=== PATIENT | male | born 1985 ===

== ENCOUNTER 2016-09-22 00:39 | Emergency (ER) | payer SELFPAY ==
[2016-09-22 00:56] VITALS: BP 124/76; PULSE 74; RESP 18; TEMP 98.5; O2SAT 100
--- NOTE | 2016-09-22 01:19 | ED PDOC ---
HPI: Abdomen Time Seen by Provider: 09/22/16 00:53 Chief Complaint (Nursing): GI Problem Chief Complaint (Provider): abd/chest pain History Per: Patient History/Exam Limitations: no limitations Onset/Duration Of Symptoms: Days (1 week), Waxing/Waning Location Of Pain/Discomfort: Epigastric Quality Of Discomfort: Burning, Pressure Associated Symptoms: denies: Fever, Chills, Nausea, Vomiting, Back Pain, Chest Pain, Urinary Symptoms Additional History Per: Patient Additional Complaint(s): 31 y/o male presents for eval of intermittent abdomen/chest pain x 1 week, worse tonight. Patient notes "acid" feeling in upper abdomen, which radiates up in to his chest and causes pressure on his chest. Patient states symptoms usually exacerbated by eating, improved with Tums. Patient notes tonight after eating eggs and rice to have burning sensation in upper abdomen which traveled up in to his chest; he states the feeling made him nervous and he began to experience palpitations and shortness of breath. Patient states he took 3 tums with improvement of symptoms. Denies fever, nausea/vomiting, changes in bowel movements, recent travel, leg pain/swelling. Past Medical History Reviewed: Historical Data, Nursing Documentation, Vital Signs Vital Signs: Last Vital Signs Temp 98.5 F 09/22/16 00:52 Pulse 74 09/22/16 00:52 Resp 18 09/22/16 00:52 BP 124/76 09/22/16 00:52 Pulse Ox 100 09/22/16 02:28 - Medical History PMH: No Chronic Diseases - Surgical History Surgical History: No Surg Hx - Family History Family History: States: Unknown Family Hx - Living Arrangements Living Arrangements: With Family - Social History Current smoker - smoking cessation education provided: No Alcohol: Occasional Drugs: Denies - Home Medications Home Medications: Ambulatory Orders Medication Instructions Recorded Famotidine [Pepcid] 20 mg PO BID #30 tab 09/22/16 - Allergies Allergies/Adverse Reactions: Allergies Allergy/AdvReac Type Severity Reaction Status Date / Time No Known Allergies Allergy Verified 09/22/16 00:52 Review of Systems ROS Statement: Except As Marked, All Systems Reviewed And Found Negative Cardiovascular: Positive for: Chest Pain Gastrointestinal: Positive for: Abdominal Pain Physical Exam - Reviewed Nursing Documentation Reviewed: Yes Vital Signs Reviewed: Yes - Physical Exam Appears: Positive for: Well, Non-toxic, No Acute Distress Head Exam: Positive for: ATRAUMATIC, NORMAL INSPECTION, NORMOCEPHALIC Skin: Positive for: Normal Color Eye Exam: Positive for: Normal appearance ENT: Positive for: Normal ENT Inspection Cardiovascular/Chest: Positive for: Regular Rate, Rhythm Respiratory: Positive for: Normal Breath Sounds Gastrointestinal/Abdominal: Positive for: Normal Exam Back: Positive for: Normal Inspection Extremity: Positive for: Normal ROM Neurologic/Psych: Positive for: Alert, Oriented - Laboratory Results Result Diagrams: 09/22/16 01:36 09/22/16 01:36 - ECG ECG: Positive for: Viewed By Me (reviewed by ED attending) ECG Rhythm: Positive for: Sinus Rhythm O2 Sat by Pulse Oximetry: 100 Pulse Ox Interpretation: Normal - Radiology X-Ray: Viewed By Me X-Ray Interpretation: No Acute Disease - Progress ED Course And Treament: labs, ekg, chest xray, IV pepcid On re-eval, patient resting comfortably; states pain improved. Patient educated on findings, discharged with rx pepcid. Advised follow up PMD. Return to ED for worsening/concerning symptoms. Disposition - Clinical Impression Clinical Impression: Abdominal pain, Chest pain - Patient ED Disposition Is Patient to be Admitted: No Counseled Patient/Family Regarding: Studies Performed, Diagnosis, Need For Followup, Rx Given - Disposition Referrals: [facility] [Outside] Disposition: Routine/Home Disposition Time: 04:41 Condition: IMPROVED Prescriptions: Famotidine [Pepcid] 20 mg PO BID #30 tab Instructions: Abdominal Pain (ED), Noncardiac Chest Pain (ED)
[2016-09-22 01:40] LABS: BASO # 0.1 K/uL (0.0-0.2); BASO % 0.8 % (0.0-2.0); EOS # 0.1 K/uL (0.0-0.7); EOS % 1.7 % (0.0-4.0); HEMATOCRIT 43.4 % (35.0-51.0); LYMPH # 1.3 K/uL (1.0-4.3); LYMPH % 20.7 % (20.0-40.0); MEAN CELL VOLUME 88.9 fl (80.0-94.0); MEAN CORPUSCULAR HEMOGLOBIN 29.6 pg (27.0-31.0); MEAN CORPUSCULAR HGB CONC 33.3 g/dL (33.0-37.0); MONO # 0.6 K/uL (0.0-0.8); NEUT # 4.3 K/uL (1.8-7.0); NEUT % 67.8 % (50.0-75.0); RED CELL DISTRIBUTION WIDTH 12.5 % (11.5-14.5); WHITE BLOOD COUNT 6.4 K/uL (4.8-10.8)
[2016-09-22 01:46] LABS: ALKALINE PHOSPHATASE 80 U/L (38-126); ALT/SGPT 38 U/L (21-72); AST/SGOT 29 U/L (17-59); BILIRUBIN,TOTAL 0.4 mg/dl (0.2-1.3); BLOOD UREA NITROGEN 14 mg/dl (9-20); CALCIUM 10.4 mg/dL (8.4-10.2); CARBON DIOXIDE 26 mmol/L (22-30); CHLORIDE 102 mmol/L (98-107); GFR AFRICAN-AMERICAN > 60; GLUCOSE,RANDOM 90 mg/dL (75-110); LIPASE 151 U/L (23-300); POTASSIUM 3.6 MMOL/L (3.6-5.0); SODIUM 140 mmol/l (132-148); TOTAL PROTEIN 8.6 G/DL (6.3-8.2)
[2016-09-22 01:55] LABS: ALB/GLOB RATIO 1.5 (1.0-2.1)
--- NOTE | 2016-09-22 10:26 | RAD ---
HISTORY: chest pain COMPARISON: None available. TECHNIQUE: Chest PA and lateral FINDINGS: LUNGS: No focal consolidation. Please note that chest x-ray has limited sensitivity for the detection of pulmonary masses. PLEURA: No significant pleural effusion identified. No definite pneumothorax . CARDIOVASCULAR: The cardiomediastinal silhouette appears within normal limits of size. OSSEOUS STRUCTURES: No acute osseous abnormality identified. VISUALIZED UPPER ABDOMEN: Unremarkable. OTHER FINDINGS: None. IMPRESSION: No focal consolidation, significant pleural effusion, or definite pneumothorax identified.
--- NOTE | 2016-09-22 23:52 | CARD ---
APPROVED REPORT EKG Measurement Heart [id number] <Conclusion> Normal sinus rhythm Normal ECG
== END 2016-09-22 04:53 | disposition home or self-care (01) ==
LOC: H.ER 00:39
DX: R06.02 Shortness of breath (principal); R07.9 Chest pain, unspecified; R10.13 Epigastric pain